=== PATIENT | male | born 2000 | race Caucasian/White ===

== ENCOUNTER 2018-11-22 20:27 | Emergency (ER) | payer MEDICAID ==
[~2018-11-22] VITALS: Ht 175.3 cm; Wt 73.0 kg
[2018-11-22] MEDS ORDERED: IBUPROFEN 800MG TABLET PO ONE (21:15)
[2018-11-22 22:30] VITALS: BP 116/62
== END 2018-11-22 22:32 | disposition home or self-care (01) ==
LOC: ER 20:27
DX: S30.0XXA Contusion of lower back and pelvis, initial encounter (principal); V49.50XA Passenger injured in collision with unspecified motor vehicles in traffic accident, initial encounter; Y93.9 Activity, unspecified; Y92.410 Unspecified street and highway as the place of occurrence of the external cause
CPT/HCPCS: 71111; 99283